=== PATIENT | female | born 1995 | race Caucasian/White ===

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

== ENCOUNTER 2018-06-10 17:04 | Emergency (ER) | payer OTHER ==
[~2018-06-10] VITALS: Ht 160 cm; Wt 56.7 kg
[2018-06-10 17:20] VITALS: Ht 160 cm; Wt 56.7 kg
[2018-06-10 17:38] LABS: BASOPHIL % 0.3 % (0-2); PLATELET COUNT 314 x10^3mcL (130-400); RED CELL DISTRIBUTION WIDTH 13.5 % (11.5-14.5)
[2018-06-10 17:53] LABS: CALCIUM 8.6 mg/dL (8.5-10.1); CARBON DIOXIDE 24.2 mmol/L (21-32); CHLORIDE SERUM 101 mmol/L (98-107); CREATININE SERUM 0.9 mg/dL (0.6-1.0); GFR1 > 60 mL/min; GLUCOSE SERUM 143 mg/dL (74-106); POTASSIUM SERUM 3.3 mmol/L (3.5-5.1); SODIUM SERUM 137 mmol/L (136-145)
[2018-06-10 17:57] LABS: ALBUMIN 3.7 g/dL (3.4-5.0); ALKALINE PHOSPHATASE 81 U/L (46-116); ALT/SGPT 19 U/L (14-59); AST/SGOT 11 U/L (15-37); BILIRUBIN TOTAL 0.2 mg/dL (0.20-1.00)
[2018-06-10 18:51] VITALS: BP 125/62
== END 2018-06-10 18:51 | disposition home or self-care (01) ==
LOC: ED 17:04
PROVIDERS: Emergency Medicine
DX: R00.2 Palpitations (principal); R55 Syncope and collapse; R53.1 Weakness; R42 Dizziness and giddiness; R06.02 Shortness of breath; R20.2 Paresthesia of skin; Z88.5 Allergy status to narcotic agent
CPT/HCPCS: 36415

== ENCOUNTER 2018-08-16 14:07 | Observation (INO) | payer OTHER ==
[~2018-08-16] VITALS: Ht 152.4 cm; Wt 74.6 kg
[2018-08-16 14:16] VITALS: Ht 152.4 cm; Wt 74.6 kg
--- NOTE | 2018-08-16 14:18 | NUR ---
PROVIDED WITH URINE CUP FOR SAMPLE; AWAITING FOR ROOM IN LOBBY AT THIS TIME
--- NOTE | 2018-08-16 16:41 | NUR ---
PT RECLINING ON GURNEY WITH NAD. BREATHING EVEN AND UNLABORED. PT HOOKED UP TO MONITORS, FAMILY AT BEDSIDE, WILL CONTINUE TO MONITOR.
--- NOTE | 2018-08-16 16:45 | NUR ---
PT CAME TO THE ED TODAY WITH CO RECTAL BLEEDING SINCE THIS AM. PT STATES " YOU KNOW HOW WHEN YOUR ON YOUR PERIOD AND IT FILLS UP THE TOILET, WELL IT WAS LIKE THAT." PT STATES ABD DISCOMFORT WELL. PER MOM PT HAS SEEN PMD RECENTLY DUE TO HEADACHES. PT STATES HEADACHE IS GENERALIZED AND HURTS " A LOT." PT STATES ABD PAIN IS UPPER AND COMES AND GOES. PT IS AWAKE AND ALERT. BREATHING EVEN AND UNLABORED. PT IS HOOKED UP TO MONITORS, SIDE RAILS UP, CALL LIGHT IN REACH, WILL CONTINUE TO MONITOR.
--- NOTE | 2018-08-16 16:49 | NUR ---
CHAPERONED DR JEFFERS FOR RECTAL EXAM.
[2018-08-16 17:05] LABS: microscopic required? NO
[2018-08-16 17:14] LABS: BASOPHIL % 0.9 % (0-2); PLATELET COUNT 322 x10^3mcL (130-400); RED CELL DISTRIBUTION WIDTH 13.8 % (11.5-14.5); urine erythrocyte NEGATIVE (NEGATIVE)
[2018-08-16 17:26] LABS: AMPHETAMINE QUAL UR NONE DETECTED (See below)
--- NOTE | 2018-08-16 17:30 | NUR ---
PT TAKEN TO CT VIA [facility] WITH NAD.
[2018-08-16 17:42] LABS: CALCIUM 9.7 mg/dL (8.5-10.1); CARBON DIOXIDE 25.1 mmol/L (21-32); CHLORIDE SERUM 104 mmol/L (98-107); CREATININE SERUM 0.8 mg/dL (0.6-1.0); GFR1 > 60 mL/min; GLUCOSE SERUM 83 mg/dL (74-106); SODIUM SERUM 140 mmol/L (136-145)
[2018-08-16 17:59] LABS: ALBUMIN 4.1 g/dL (3.4-5.0); ALKALINE PHOSPHATASE 73 U/L (46-116); ALT/SGPT 21 U/L (14-59); AST/SGOT 7 U/L (15-37); BILIRUBIN TOTAL 0.27 mg/dL (0.20-1.00); LIPASE 111 IU/L (73-393); T4(THYROXINE) 9.1 ug/dL (4.7-13.3); TOTAL PROTEIN, SERUM 8.2 g/dL (6.4-8.2)
--- NOTE | 2018-08-16 19:12 | NUR ---
REPORT GIVEN TO LA AYOUB FOR FURTHER CARE OF PT
--- NOTE | 2018-08-16 19:56 | NUR ---
PATIENT IS ADMITTED TO THE HOSPITAL. RESIDENT TALKING TO THE PATIENT.
--- NOTE | 2018-08-16 20:06 | NUR ---
REPORT WAS GIVEN TO BONIFACIO. PATIENT TRANSPORTED TO ROOM 258B.
[2018-08-16 20:35] LABS: MAGNESIUM 2.1 mg/dL (1.8-2.4); PHOSPHOROUS 3.8 mg/dL (2.5-4.9)
[2018-08-16 20:37] VITALS: BP 118/61
--- NOTE | 2018-08-16 20:41 | NUR ---
RECEIVED PT FROM ED VIA NOE. ORIENTED PT TO ROOM AND SURROUNDINGS. IV NOTED TO LAC PATENT AND INTACT. INSTRUCTED PT ON THE USE OF CALL LIGHT FOR ASSISTANCE. ENDORSED PT TO PRIMARY NURSE BONIFACIO
[2018-08-16 20:45] LABS: T3 TOTAL 1.18 ng/mL
[2018-08-16 21:14] LABS: FREE T4 1.15 ng/dL (0.76-1.46); FREE THYROXINE INDEX 3.2 ug/dL (1.4-4.5); T4(THYROXINE) 9.3 ug/dL (4.7-13.3)
[2018-08-16 21:24] VITALS: BP 115/63
[2018-08-17 06:18] VITALS: BP 106/69
[2018-08-17 06:45] LABS: BASOPHIL % 0.5 % (0-2); PLATELET COUNT 273 x10^3mcL (130-400); RED CELL DISTRIBUTION WIDTH 13.8 % (11.5-14.5)
--- NOTE | 2018-08-17 07:20 | NUR ---
RECEIVED PATIENT FROM MANAGER CARDIAC NURSE. PATIENT IS AWAKE, ALERT AND ORIENTED. NPO STATUS SINCE 0000 ON 08/16. PATIENT INSTRUCTED ON BRP PRIVLEDGES ONLY. ON ROOM AIR, RESP E/U. IV NOTED TO LAC, IVF INFUSING WELL ORDERED, NO S/S ERYTHEMA AT SITE. WILL CONTINUE PLAN OF CARE.
[2018-08-17 07:27] VITALS: BP 105/47
[2018-08-17 07:41] LABS: ALBUMIN 3.5 g/dL (3.4-5.0); ALKALINE PHOSPHATASE 59 U/L (46-116); ALT/SGPT 20 U/L (14-59); AST/SGOT 10 U/L (15-37); BILIRUBIN TOTAL 0.5 mg/dL (0.20-1.00); CALCIUM 8.9 mg/dL (8.5-10.1); CARBON DIOXIDE 27.3 mmol/L (21-32); CHLORIDE SERUM 107 mmol/L (98-107); CREATININE SERUM 0.8 mg/dL (0.6-1.0); GFR1 > 60 mL/min; GLUCOSE SERUM 85 mg/dL (74-106); POTASSIUM SERUM 3.9 mmol/L (3.5-5.1); SODIUM SERUM 145 mmol/L (136-145)
[2018-08-17 10:43] VITALS: BP 105/47
--- NOTE | 2018-08-17 11:07 | NUR ---
ALL DC INSTRUCTIONS INSTRUCTIONS GIVEN TO PATIENT. ALL QUESTIONS ANSWERED REGARDING DC. PATIENT TO GET DRESSED AND NOTIFY STAFF WHEN READY TO BE TAKEN DOWN TO LOBBY.
--- NOTE | 2018-08-17 11:15 | NUR ---
[facility]IENT [facility]AKEN [facility] TO [facility] DC'D HOME AT THIS TIME. AWAKE, ALERT AND ORIENTED. NO C/O PAIN OR DISCOMFORT. VS STABLE. PATIENT TAKEN DOWN BY S[facility]VA [facility].
== END 2018-08-17 11:17 | disposition home or self-care (01) | DRG 395 ==
LOC: ED 14:07 → MU 19:29
PROVIDERS: Emergency Medicine; Internal Medicine; ADMIT Internal Medicine
DX: K64.8 Other hemorrhoids (principal); K62.89 Other specified diseases of anus and rectum
CPT/HCPCS: 84439; G0378; G0480; J7030; Q9967